=== PATIENT | male | born 1980 | race Caucasian/White ===

== ENCOUNTER 2017-04-21 08:06 | Emergency (ER) | payer MEDICAID, OTHER ==
[2017-04-21] VITALS (7 sets, daily range): BP systolic 94–141; BP diastolic 53–80
[~2017-04-21] VITALS: Ht 160 cm; Wt 73.0 kg
[~2017-04-21 08:06] MED LIST: AMLO10TA80 PO; COR6 PO; LEVVL SQ; LISI40TA4 PO; NEPVIT PO; SEVE800T8 PO
[2017-04-21 09:44] LABS: BASOPHILS % 0.7 % (0.0-2.0); EOSINOPHILS % 4.6 % (0.0-5.0); HEMOGLOBIN. 8.8 g/dL (14.0-18.0); LYMPHOCYTES % 21.1 % (20.0-50.0); MEAN CORPUSCULAR HEMOGLOBIN 26.6 pg (28.0-32.0); MEAN CORPUSCULAR VOLUME 81.3 fL (80.0-94.0); MEAN PLATELET VOLUME 10.2 fl (7.4-10.4); MONOCYTES % 10.6 % (2.0-8.0); PLATELET 284 x1000/uL (130-400); RED BLOOD CELL COUNT 3.32 mill/uL (4.7-6.1); RED CELL DISTRIBUTION WIDTH 15.3 % (11.6-14.6)
[2017-04-21 09:50] LABS: PARTIAL THROMBOPLASTIN TIME 25.6 sec (23.4-31.0); PROTHROMBIN TIME 10.7 sec (9.4-11.6)
[2017-04-21] MEDS ORDERED: HEPARIN 1000 UNITS/ML 10ML ONE (11:23)
[2017-04-21] MEDS ORDERED: FENTANYL CITRATE/PF 50MCG/ML 2ML VIAL IV ONE (11:30)
[2017-04-21] MEDS ORDERED: CEFAZOLIN 1000MG PREMIX 50 ML IV ONE ×2 (11:30→11:54)
[2017-04-21] MEDS ORDERED: FENTANYL CITRATE/PF 50MCG/ML 2ML VIAL ONE (11:54)
[2017-04-21 16:06] LABS: T4 FREE 2.45 ng/dL (0.76-1.46)
== END 2017-04-21 13:58 | disposition home or self-care (01) ==
LOC: ER 08:16
DX: T82.898A Other specified complication of vascular prosthetic devices, implants and grafts, initial encounter (principal); E11.22 Type 2 diabetes mellitus with diabetic chronic kidney disease; I12.0 Hypertensive chronic kidney disease with stage 5 chronic kidney disease or end stage renal disease; N18.6 End stage renal disease; F12.10 Cannabis abuse, uncomplicated; Z79.4 Long term (current) use of insulin; Z99.2 Dependence on renal dialysis
CPT/HCPCS: 36415; 36581; 77001; 80048; 84439; 84481; 85025; 85610; 85730; 96374; 99285; C1750; C1769; J0690; J1644; J3010; Z7610

== ENCOUNTER 2018-08-30 23:50 | Emergency (ER) | payer OTHER ==
[~2018-08-30] VITALS: Ht 175.3 cm; Wt 75.0 kg
[~2018-08-30 23:50] MED LIST changes: -AMLO10TA80 PO; -COR6 PO; -LISI40TA4 PO; +PROP50TA3 PO
[2018-08-31] MEDS ORDERED: MORPHINE SULFATE 4 MG/ML CPJ (NOT FOR IM USE) IV STA (00:40)
[2018-08-31] MEDS ORDERED: ONDANSETRON HCL 4MG/2ML INJ IV STA (00:40)
[2018-08-31 01:42] LABS: CHLORIDE 96 mEq/L (98-107)
[2018-08-31 01:48] LABS: BASOPHILS % 0.3 % (0.0-2.0); EOSINOPHILS % 0.2 % (0.0-5.0); HEMATOCRIT. 36.5 % (42.0-52.0); HEMOGLOBIN. 12.1 g/dL (14.0-18.0); LYMPHOCYTES % 12.1 % (20.0-50.0); MEAN CORPUSCULAR HEMOGLOBIN 30.6 pg (28.0-32.0); MEAN PLATELET VOLUME 9.4 fl (7.4-10.4); MONOCYTES % 10.1 % (2.0-8.0); NEUTROPHILS % 77.3 % (40.0-76.0); PLATELET 251 x1000/uL (130-400); RED BLOOD CELL COUNT 3.97 mill/uL (4.7-6.1); RED CELL DISTRIBUTION WIDTH 15.6 % (11.6-14.6)
[2018-08-31] MEDS ORDERED: MORPHINE SULFATE 4 MG/ML CPJ (NOT FOR IM USE) IV ONE (02:15)
[2018-08-31] MEDS ORDERED: ONDANSETRON HCL 4MG/2ML INJ IV ONE (02:15)
[2018-08-31 02:48] LABS: CLARITY URINE CLOUDY (CLEAR); COLOR URINE YELLOW (YELLOW); KETONES URINE TRACE (NEGATIVE); LEUKOCYTE ESTERASE URINE NEGATIVE (NEGATIVE); NITRITE URINE NEGATIVE (NEGATIVE); OCCULT BLOOD URINE 2+ (NEGATIVE); PH URINE 5.5 (4.5-8.0); PROTEIN URINE 4+ (NEGATIVE); SPECIFIC GRAVITY URINE 1.018 (1.005-1.030); UROBILINOGEN URINE 0.2 E.U./dL (0.2-1.0)
[2018-08-31 04:30] VITALS: BP 145/75
== END 2018-08-31 04:30 | disposition home or self-care (01) ==
LOC: ER 23:50
DX: R10.0 Acute abdomen (principal); R19.7 Diarrhea, unspecified; I12.0 Hypertensive chronic kidney disease with stage 5 chronic kidney disease or end stage renal disease; E11.22 Type 2 diabetes mellitus with diabetic chronic kidney disease; N18.6 End stage renal disease; I25.10 Atherosclerotic heart disease of native coronary artery without angina pectoris; Z99.2 Dependence on renal dialysis; Z79.899 Other long term (current) drug therapy; Z95.5 Presence of coronary angioplasty implant and graft; Z95.1 Presence of aortocoronary bypass graft
CPT/HCPCS: 36415; 71045; 74176; 80053; 81003; 83690; 85025; 96374; 96375; 96376; 99284; J2270; J2405; Z7610

== ENCOUNTER 2018-09-04 07:43 | Inpatient (IN) | payer OTHER ==
[~2018-09-04] VITALS: Ht 175.3 cm; Wt 75.0 kg
[2018-09-04] MEDS ORDERED: DIPHENHYDRAMINE 50MG/ML VIAL IV ONE (08:30)
[2018-09-04 08:57] LABS: HEMATOCRIT. 39.6 % (42.0-52.0); HEMOGLOBIN. 12.7 g/dL (14.0-18.0); MEAN CORPUSCULAR HEMOGLOBIN 29.8 pg (28.0-32.0); MEAN CORPUSCULAR VOLUME 92.6 fL (80.0-94.0); MEAN PLATELET VOLUME 9.2 fl (7.4-10.4); PLATELET 191 x1000/uL (130-400); RED BLOOD CELL COUNT 4.27 mill/uL (4.7-6.1); RED CELL DISTRIBUTION WIDTH 16.5 % (11.6-14.6)
[2018-09-04 09:01] LABS: CHLORIDE 86 mEq/L (98-107)
[2018-09-04 09:03] LABS: INR 1.2; PARTIAL THROMBOPLASTIN TIME 32.2 sec (23.4-31.0); PROTHROMBIN TIME 12.3 sec (9.6-11.0)
[2018-09-04 09:09] LABS: BG BASE EXCESS -13.8 mmol/L (-2.0-2.0); BG CARBOXYHEMOGLOBIN 1.3 % (0.5-1.5); BG DEOXYHEMOGLOBIN 8.8 % (0.0-5.0); BG FRACTION INSPIRED OXYGEN 21; BG HCO3 ACT 11.5 mmol/L (22.0-26.0); BG METHEMOGLOBIN 0.2 % (0.0-1.5); BG OXYGEN SATURATION 91.1 % (92.0-98.5); BG OXYHEMOGLOBIN 89.7 % (94.0-97.0); BG PCO2 26.2 mmHg (35.0-45.0); BG PH 7.261 (7.350-7.450); BG PO2 79.2 mmHg (75.0-100.0); BG SAMPLE SITE RIGHT BRACHIAL; BG TOTAL HEMOGLOBIN 13.1 g/dL (12.0-18.0); BG VENT MODE ROOM AIR
[2018-09-04 09:17] LABS: PHOSPHORUS 10.2 mg/dL (2.5-4.9)
[2018-09-04] MEDS ORDERED: SODIUM BICARBONATE 8.4% 1 MEQ/ML 50ML SYR IV ONE (09:30)
[2018-09-04] MEDS ORDERED: CALCIUM CHLORIDE 1GM/10ML SYR IV ONE (09:30)
[2018-09-04] MEDS ORDERED: DEXTROSE 50% WATER 50ML SYRINGE IV ONE (09:30)
[2018-09-04] MEDS ORDERED: INSULIN REGULAR (HUMULIN R) 300UNITS/3ML IV ONE (09:30)
[2018-09-04 09:44] LABS: PLATELET ESTIMATE NORMAL
[2018-09-04] MEDS ORDERED: MORPHINE SULFATE 2 MG/ML CPJ (NOT FOR IM USE) IV PRN (13:30)
[2018-09-04] MEDS ORDERED: ONDANSETRON HCL 4MG/2ML INJ IV PRN (13:30)
[2018-09-04] MEDS ORDERED: NA PHOS,M-B/NA PHOS,DI-BA ENEMA 118ML PR PRN (13:30)
[2018-09-04] MEDS ORDERED: DOCUSATE SODIUM 100MG CAPSULE PO PRN (13:30)
[2018-09-04] MEDS ORDERED: HYDROCODONE/ACETAMINOPHEN 5/325MG TABLET PO PRN (13:30)
[2018-09-04] MEDS ORDERED: DIPHENHYDRAMINE 50MG/ML VIAL IV PRN (13:30)
[2018-09-04] MEDS ORDERED: CLONIDINE 0.1MG TABLET PO PRN (13:30)
[2018-09-04] MEDS ORDERED: GUAIFENESIN 200MG/10ML SUGAR FREE UDC PO PRN (13:30)
[2018-09-04] MEDS ORDERED: ACETAMINOPHEN 325MG TABLET PO PRN (13:30)
[2018-09-04] MEDS ORDERED: LORAZEPAM 2MG/ML CPJ IV PRN (13:30)
[2018-09-04] MEDS ORDERED: IPRATROPIUM/ALBUTEROL 0.5-3(2.5)MG/3ML NEB INH PRN (13:30)
[2018-09-04] MEDS ORDERED: MAGNESIUM/ALUMINUM HYDROXIDE/SIMETHICONE 30ML UDC PO PRN (13:30)
[2018-09-04 13:52] VITALS: BP 193/92
[2018-09-04 15:56] VITALS: BP 193/92
[2018-09-04 16:00] VITALS: BP_SYST 122; BP_SYST 193; BP_DIAS 63; BP_DIAS 92
[2018-09-04] MEDS: ENOXAPARIN 30MG/0.3ML SYR SUBCUT SCH (18:10)
[2018-09-04 20:00] VITALS: BP 194/97
[2018-09-04] MEDS ORDERED: HEPARIN SODIUM 1,000 UNIT/1ML VIAL IV NR ×2 (20:00→21:45)
[2018-09-04] MEDS: PROPYLTHIOURACIL 50MG TABLET PO SCH (22:00)
[2018-09-05] VITALS (8 sets, daily range): BP systolic 143–177; BP diastolic 68–93
[2018-09-05] MEDS: PROPYLTHIOURACIL 50MG TABLET PO SCH (05:34)
[2018-09-05 07:32] LABS: BASOPHILS % 0.4 % (0.0-2.0); EOSINOPHILS % 1.2 % (0.0-5.0); HEMATOCRIT. 34.3 % (42.0-52.0); HEMOGLOBIN. 11.4 g/dL (14.0-18.0); LYMPHOCYTES % 15.3 % (20.0-50.0); MEAN CORPUSCULAR HEMOGLOBIN 30.3 pg (28.0-32.0); MEAN CORPUSCULAR VOLUME 91.1 fL (80.0-94.0); MEAN PLATELET VOLUME 9.6 fl (7.4-10.4); MONOCYTES % 14.1 % (2.0-8.0); PLATELET 132 x1000/uL (130-400); RED BLOOD CELL COUNT 3.77 mill/uL (4.7-6.1); RED CELL DISTRIBUTION WIDTH 16.1 % (11.6-14.6)
[2018-09-05 08:33] LABS: CHLORIDE 95 mEq/L (98-107)
[2018-09-05 08:42] LABS: LDL CHOLESTEROL 76 mg/dL (5-100); T4 FREE 2.27 ng/dL (0.76-1.46)
[2018-09-05 08:43] LABS: CREATINE KINASE 150 IU/L (39-308); CREATINE KINASE MB FRACTION 6.5 ng/mL (0.5-3.6); HDL CHOLESTEROL 21 mg/dL (40-59)
[2018-09-05] MEDS: ASPIRIN 81MG EC TABLET PO SCH (09:17)
[2018-09-05] MEDS: SEVELAMER CARBONATE 800 MG TABLET PO SCH ×3 (09:17→17:17)
[2018-09-05] MEDS: FOLIC ACID/VITAMIN B COMP W-C TABLET PO SCH (09:18)
[2018-09-05] MEDS: LOSARTAN POTASSIUM 25 MG TABLET PO SCH (14:00)
[2018-09-05] MEDS ORDERED: CLONIDINE 0.2MG TABLET PO PRN (14:00)
[2018-09-05] MEDS: METHIMAZOLE 10MG TABLET PO SCH (17:00)
[2018-09-05] MEDS: ENOXAPARIN 30MG/0.3ML SYR SUBCUT SCH (17:00)
[2018-09-05] MEDS: NITROGLYCERIN OINT 1GM/INCH UDPKT TD SCH (17:30)
[2018-09-05] MEDS: CARVEDILOL 6.25 MG TABLET PO SCH (20:42)
[2018-09-06] VITALS: BP 141/88
[2018-09-06] MEDS: NITROGLYCERIN OINT 1GM/INCH UDPKT TD SCH ×4 (00:45→17:14)
[2018-09-06] MEDS ORDERED: DEXTROSE 50% WATER 50ML SYRINGE IV PRN (01:15)
[2018-09-06 04:00] VITALS: BP 133/71
[2018-09-06 06:03] LABS: BASOPHILS % 0.7 % (0.0-2.0); EOSINOPHILS % 3.9 % (0.0-5.0); HEMATOCRIT. 34.6 % (42.0-52.0); HEMOGLOBIN. 11.5 g/dL (14.0-18.0); LYMPHOCYTES % 15.2 % (20.0-50.0); MEAN CORPUSCULAR HEMOGLOBIN 30.5 pg (28.0-32.0); MEAN CORPUSCULAR VOLUME 92.1 fL (80.0-94.0); MEAN PLATELET VOLUME 10.4 fl (7.4-10.4); MONOCYTES % 14.5 % (2.0-8.0); NEUTROPHILS % 65.7 % (40.0-76.0); PLATELET 117 x1000/uL (130-400); RED BLOOD CELL COUNT 3.76 mill/uL (4.7-6.1); RED CELL DISTRIBUTION WIDTH 16.4 % (11.6-14.6)
[2018-09-06 06:34] LABS: CHLORIDE 92 mEq/L (98-107)
[2018-09-06 06:46] LABS: CREATINE KINASE 144 IU/L (39-308)
[2018-09-06 06:49] LABS: CREATINE KINASE MB FRACTION 6.8 ng/mL (0.5-3.6)
[2018-09-06] MEDS: INSULIN LISPRO 100 UNITS/ML SUBCUT SCH ×4 (06:55→20:47)
[2018-09-06] MEDS: BLOOD SUGAR DIAGNOSTIC STRIP TEST SCH ×4 (06:55→20:48)
[2018-09-06] MEDS: CARVEDILOL 6.25 MG TABLET PO SCH ×2 (08:06→20:47)
[2018-09-06] MEDS: LOSARTAN POTASSIUM 25 MG TABLET PO SCH (08:06)
[2018-09-06 08:46] VITALS: BP 129/75
[2018-09-06] MEDS: METHIMAZOLE 10MG TABLET PO SCH ×2 (09:10→18:05)
[2018-09-06] MEDS: ASPIRIN 81MG EC TABLET PO SCH (09:11)
[2018-09-06] MEDS: FOLIC ACID/VITAMIN B COMP W-C TABLET PO SCH (09:11)
[2018-09-06] MEDS: SEVELAMER CARBONATE 800 MG TABLET PO SCH ×3 (09:11→18:05)
[2018-09-06 12:00] VITALS: BP 126/77
[2018-09-06 12:37] LABS: HEPATITIS B SURFACE ANTIGEN NEGATIVE
[2018-09-06 13:05] LABS: HEPATITIS A AB IGM NEGATIVE (NEGATIVE)
[2018-09-06 16:04] VITALS: BP 141/83
[2018-09-06 20:17] VITALS: BP 150/75
[2018-09-07] VITALS (7 sets, daily range): BP systolic 116–149; BP diastolic 60–84
[2018-09-07] MEDS: NITROGLYCERIN OINT 1GM/INCH UDPKT TD SCH ×3 (00:56→18:00)
[2018-09-07 06:05] LABS: BASOPHILS % 1.1 % (0.0-2.0); EOSINOPHILS % 7.7 % (0.0-5.0); HEMOGLOBIN. 11.9 g/dL (14.0-18.0); LYMPHOCYTES % 10.6 % (20.0-50.0); MEAN CORPUSCULAR HEMOGLOBIN 30.5 pg (28.0-32.0); MEAN PLATELET VOLUME 10.5 fl (7.4-10.4); MONOCYTES % 13.7 % (2.0-8.0); NEUTROPHILS % 66.9 % (40.0-76.0); PLATELET 109 x1000/uL (130-400); RED BLOOD CELL COUNT 3.91 mill/uL (4.7-6.1); RED CELL DISTRIBUTION WIDTH 16.5 % (11.6-14.6)
[2018-09-07] MEDS: INSULIN LISPRO 100 UNITS/ML SUBCUT SCH ×4 (06:21→20:46)
[2018-09-07] MEDS: BLOOD SUGAR DIAGNOSTIC STRIP TEST SCH ×4 (06:22→20:30)
[2018-09-07 06:24] LABS: CHLORIDE 98 mEq/L (98-107)
[2018-09-07] MEDS: ASPIRIN 81MG EC TABLET PO SCH (08:31)
[2018-09-07] MEDS: CARVEDILOL 6.25 MG TABLET PO SCH ×2 (08:37→20:40)
[2018-09-07] MEDS: LOSARTAN POTASSIUM 25 MG TABLET PO SCH (08:37)
[2018-09-07] MEDS: METHIMAZOLE 10MG TABLET PO SCH ×2 (08:37→17:00)
[2018-09-07] MEDS: SEVELAMER CARBONATE 800 MG TABLET PO SCH ×3 (08:37→17:20)
[2018-09-07] MEDS: FOLIC ACID/VITAMIN B COMP W-C TABLET PO SCH (08:37)
[2018-09-07] MEDS ORDERED: HEPARIN SODIUM 1,000 UNIT/1ML VIAL IV ONE (09:31)
[2018-09-07] MEDS ORDERED: MIDAZOLAM HCL 2 MG/2 ML VIAL ONE (11:59)
[2018-09-07] MEDS ORDERED: LIDOCAINE HCL 1% 20ML VIAL (Pyxis) INJ ONE (12:00)
[2018-09-07] MEDS ORDERED: ASPIRIN/SOD BICARB/CITRIC ACID 324MG TAB EFF ONE (12:00)
[2018-09-07] MEDS ORDERED: FENTANYL CITRATE/PF 50MCG/ML 2ML VIAL ONE (12:00)
[2018-09-07] MEDS ORDERED: IODIXANOL 320MG/ML 100 ML BOTTLE IV ONE (12:00)
[2018-09-07] MEDS ORDERED: ATROPINE SULFATE 1MG/10ML SYR IV PRN (13:15)
[2018-09-07] MEDS ORDERED: MORPHINE SULFATE 2 MG/ML CPJ (NOT FOR IM USE) IV PRN (13:15)
[2018-09-07] MEDS ORDERED: ACETAMINOPHEN 325MG TABLET PO PRN (13:15)
[2018-09-07] MEDS ORDERED: ONDANSETRON HCL 4MG/2ML INJ IV PRN (13:15)
[2018-09-08] VITALS (7 sets, daily range): BP systolic 142–157; BP diastolic 78–91
[2018-09-08] MEDS: NITROGLYCERIN OINT 1GM/INCH UDPKT TD SCH ×3 (01:01→11:50)
[2018-09-08] MEDS: BLOOD SUGAR DIAGNOSTIC STRIP TEST SCH ×2 (06:26→11:50)
[2018-09-08 07:04] LABS: EOSINOPHILS % 11.9 % (0.0-5.0); HEMATOCRIT. 36.3 % (42.0-52.0); HEMOGLOBIN. 11.8 g/dL (14.0-18.0); LYMPHOCYTES % 10.3 % (20.0-50.0); MEAN CORPUSCULAR VOLUME 92.2 fL (80.0-94.0); MEAN PLATELET VOLUME 10.2 fl (7.4-10.4); MONOCYTES % 10.6 % (2.0-8.0); NEUTROPHILS % 66.2 % (40.0-76.0); PLATELET 111 x1000/uL (130-400); RED BLOOD CELL COUNT 3.94 mill/uL (4.7-6.1); RED CELL DISTRIBUTION WIDTH 16.5 % (11.6-14.6)
[2018-09-08] MEDS: SEVELAMER CARBONATE 800 MG TABLET PO SCH (08:03)
[2018-09-08] MEDS: METHIMAZOLE 10MG TABLET PO SCH (08:04)
[2018-09-08] MEDS: ASPIRIN 81MG EC TABLET PO SCH (08:04)
[2018-09-08] MEDS: LOSARTAN POTASSIUM 25 MG TABLET PO SCH (08:04)
[2018-09-08] MEDS: FOLIC ACID/VITAMIN B COMP W-C TABLET PO SCH (08:04)
[2018-09-08] MEDS: CARVEDILOL 6.25 MG TABLET PO SCH (08:05)
[2018-09-08] MEDS: INSULIN LISPRO 100 UNITS/ML SUBCUT SCH (08:06)
== END 2018-09-08 11:46 | disposition home or self-care (01) | DRG 190 ==
LOC: ER 07:43 → 8WST 10:24 → EDBEDREQ 10:26 → EDBEDREQTM 10:26 → ENRESERV 14:45 → 3WST 09-07 13:29
PROVIDERS: ADMIT Internal Medicine; ATTEND Internal Medicine
PROC: 5A1D70Z Performance of Urinary Filtration, Intermittent, Less than 6 Hours Per Day (ICD-10-PCS; 2018-09-04)
PROC: 5A1D70Z Performance of Urinary Filtration, Intermittent, Less than 6 Hours Per Day (ICD-10-PCS; 2018-09-06)
PROC: 4A023N7 Measurement of Cardiac Sampling and Pressure, Left Heart, Percutaneous Approach (ICD-10-PCS; principal; 2018-09-07)
PROC: B2111ZZ Fluoroscopy of Multiple Coronary Arteries using Low Osmolar Contrast (ICD-10-PCS; 2018-09-07)
PROC: B2131ZZ Fluoroscopy of Multiple Coronary Artery Bypass Grafts using Low Osmolar Contrast (ICD-10-PCS; 2018-09-07)
PROC: B2181ZZ Fluoroscopy of Left Internal Mammary Bypass Graft using Low Osmolar Contrast (ICD-10-PCS; 2018-09-07)
PROC: 4A033BC Measurement of Arterial Pressure, Coronary, Percutaneous Approach (ICD-10-PCS; 2018-09-07)
PROC: 5A1D70Z Performance of Urinary Filtration, Intermittent, Less than 6 Hours Per Day (ICD-10-PCS; 2018-09-07)
DX: I21.4 Non-ST elevation (NSTEMI) myocardial infarction (principal); I13.2 Hypertensive heart and chronic kidney disease with heart failure and with stage 5 chronic kidney disease, or end stage renal disease; N17.9 Acute kidney failure, unspecified; E11.21 Type 2 diabetes mellitus with diabetic nephropathy; D69.6 Thrombocytopenia, unspecified; E46 Unspecified protein-calorie malnutrition; N18.6 End stage renal disease; E11.22 Type 2 diabetes mellitus with diabetic chronic kidney disease; E87.70 Fluid overload, unspecified; E11.51 Type 2 diabetes mellitus with diabetic peripheral angiopathy without gangrene; E87.5 Hyperkalemia; E83.39 Other disorders of phosphorus metabolism; I42.0 Dilated cardiomyopathy; I25.10 Atherosclerotic heart disease of native coronary artery without angina pectoris; I25.5 Ischemic cardiomyopathy; J98.11 Atelectasis; N25.81 Secondary hyperparathyroidism of renal origin; D63.8 Anemia in other chronic diseases classified elsewhere; E87.1 Hypo-osmolality and hyponatremia; E05.00 Thyrotoxicosis with diffuse goiter without thyrotoxic crisis or storm; E03.9 Hypothyroidism, unspecified; E78.00 Pure hypercholesterolemia, unspecified; L29.9 Pruritus, unspecified; E78.5 Hyperlipidemia, unspecified; R74.0 Nonspecific elevation of levels of transaminase and lactic acid dehydrogenase [LDH]; I50.20 Unspecified systolic (congestive) heart failure; Z79.4 Long term (current) use of insulin; Z99.2 Dependence on renal dialysis; Z91.15 Patient's noncompliance with renal dialysis; I25.2 Old myocardial infarction; Z91.19 Patient's noncompliance with other medical treatment and regimen; Z95.1 Presence of aortocoronary bypass graft; Z83.3 Family history of diabetes mellitus; Z79.84 Long term (current) use of oral hypoglycemic drugs; Z68.24 Body mass index [BMI] 24.0-24.9, adult
CPT/HCPCS: 36415; 36600; 71045; 80048; 80061; 82375; 82550; 82553; 82805; 82962; 83520; 83735; 83970; 84100; 84439; 84443; 84481; 84484; 86376; 86705; 86709; 86803; 87340; 93005; 93306; 93459; 96374; 96375; 99291; C1760; C1769; C1893; J1200; J1644; J1650; J1815; J2060; J2250; J3010; J3490; Q9967

== ENCOUNTER 2019-03-05 19:11 | Emergency (ER) | payer MEDICAID, OTHER ==
[~2019-03-05] VITALS: Ht 175.3 cm; Wt 76.0 kg
[2019-03-05 20:23] VITALS: BP 164/88
== END 2019-03-05 21:27 | disposition left against medical advice (07) ==
LOC: ER 19:11
DX: Z53.21 Procedure and treatment not carried out due to patient leaving prior to being seen by health care provider (principal); R05 Cough; R50.9 Fever, unspecified; J02.9 Acute pharyngitis, unspecified

== ENCOUNTER 2019-08-14 22:04 | Inpatient (IN) | payer MEDICAID ==
[~2019-08-14] VITALS: Ht 177.8 cm; Wt 92.2 kg
[2019-08-14] MEDS ORDERED: SODIUM CHLORIDE 0.9% 1,000 ML IV ONE (22:47)
[2019-08-14] MEDS ORDERED: MORPHINE SULFATE 4 MG/ML CPJ (NOT FOR IM USE) IV STA (22:47)
[2019-08-14] MEDS ORDERED: ONDANSETRON HCL 4MG/2ML INJ IV STA (22:47)
[2019-08-14] MEDS ORDERED: VANCOMYCIN 1 G PREMIX 200 ML IV ONE (23:00)
[2019-08-14] MEDS ORDERED: PIPERACILLIN/TAZ 3.375G PREMIX 50 ML IV ONE (23:00)
[2019-08-14 23:08] LABS: BASOPHILS % 0.7 % (0.0-2.0); EOSINOPHILS % 0.6 % (0.0-5.0); HEMOGLOBIN. 12.5 g/dL (14.0-18.0); LYMPHOCYTES % 7.6 % (20.0-50.0); MEAN CORPUSCULAR HEMOGLOBIN 30.8 pg (28.0-32.0); MEAN CORPUSCULAR VOLUME 91.4 fL (80.0-94.0); MEAN PLATELET VOLUME 9.2 fl (7.4-10.4); MONOCYTES % 6.1 % (2.0-8.0); PLATELET 224 x1000/uL (130-400); RED BLOOD CELL COUNT 4.05 mill/uL (4.7-6.1); RED CELL DISTRIBUTION WIDTH 17.8 % (11.6-14.6)
[2019-08-14 23:16] LABS: CHLORIDE 96 mEq/L (98-107)
[2019-08-14 23:24] LABS: BETA HYDROXYBUTYRATE 1.2 mMol/L (0.0-0.3)
[2019-08-15 03:00] VITALS: BP 155/77
[2019-08-15 04:00] VITALS: BP 155/77
[2019-08-15] MEDS ORDERED: DEXTROSE 50% WATER 50ML SYRINGE IV PRN (06:00)
[2019-08-15] MEDS: BLOOD SUGAR DIAGNOSTIC STRIP TEST SCH ×4 (06:47→21:51)
[2019-08-15 08:00] VITALS: BP 159/86
[2019-08-15] MEDS: INSULIN LISPRO 100 UNITS/ML SUBCUT SCH ×4 (08:10→21:00)
[2019-08-15] MEDS: ENOXAPARIN 30MG/0.3ML SYR SUBCUT SCH (08:31)
[2019-08-15] MEDS ORDERED: ENOXAPARIN 40MG/0.4ML SYR SUBCUT SCH (09:00)
[2019-08-15] MEDS: PROPYLTHIOURACIL 50MG TABLET PO SCH ×4 (10:00→21:51)
[2019-08-15] MEDS: FOLIC ACID/VITAMIN B COMP W-C TABLET PO SCH (10:23)
[2019-08-15] MEDS: PIPERACILLIN/TAZOBACTAM 2.25 G in DEXTROSE 5% WATER 50 ML IV SCH ×2 (10:23→17:22)
[2019-08-15 10:30] LABS: HEMATOCRIT. 34.7 % (42.0-52.0); HEMOGLOBIN. 11.6 g/dL (14.0-18.0); MEAN CORPUSCULAR HEMOGLOBIN 30.6 pg (28.0-32.0); MEAN CORPUSCULAR VOLUME 91.9 fL (80.0-94.0); MEAN PLATELET VOLUME 9.2 fl (7.4-10.4); PLATELET 226 x1000/uL (130-400); RED BLOOD CELL COUNT 3.78 mill/uL (4.7-6.1); RED CELL DISTRIBUTION WIDTH 17.9 % (11.6-14.6)
[2019-08-15] MEDS ORDERED: AMLO10TA4 MT (10:37)
[2019-08-15] MEDS ORDERED: CARV12.545 MT (10:37)
[2019-08-15] MEDS ORDERED: VANCOMYCIN 750 MG PREMIX 150 ML IV SCH (11:00)
[2019-08-15] MEDS: AMLODIPINE 10MG TABLET PO SCH (11:05)
[2019-08-15] MEDS: HYDROCODONE/ACETAMINOPHEN 5/325MG TABLET PO PRN ×3 (11:06→22:07)
[2019-08-15 12:00] VITALS: BP 148/79
[2019-08-15] MEDS ORDERED: SODIUM BICARBONATE 8.4% 1 MEQ/ML 50ML SYR IV SCH (12:00)
[2019-08-15] MEDS: SEVELAMER CARBONATE 800 MG TABLET PO SCH ×2 (12:29→17:22)
[2019-08-15] MEDS ORDERED: INSULIN REGULAR (HUMULIN R) UD 100 UNITS/ML SYR IV SCH (13:00)
[2019-08-15] MEDS ORDERED: DEXTROSE 50% WATER 50ML SYRINGE IV SCH (13:00)
[2019-08-15] MEDS ORDERED: PIPERACILLIN/TAZ 3.375G PREMIX 50 ML IV SCH (14:00)
[2019-08-15 16:00] VITALS: BP 138/77
[2019-08-15 20:00] VITALS: BP 122/73
[2019-08-15] MEDS: CARVEDILOL 12.5MG TABLET PO SCH (21:50)
[2019-08-15] MEDS: INSULIN GLARGINE UD 100 UNITS/ML SYR SUBCUT SCH (21:59)
[2019-08-16] VITALS: BP 118/73
[2019-08-16] MEDS: PIPERACILLIN/TAZOBACTAM 2.25 G in DEXTROSE 5% WATER 50 ML IV SCH ×3 (02:41→18:28)
[2019-08-16] MEDS: HYDROCODONE/ACETAMINOPHEN 5/325MG TABLET PO PRN ×4 (02:49→18:28)
[2019-08-16 04:00] VITALS: BP 122/75
[2019-08-16] MEDS: PROPYLTHIOURACIL 50MG TABLET PO SCH ×4 (06:00→20:18)
[2019-08-16 06:35] LABS: PHOSPHORUS 8.5 mg/dL (2.5-4.9)
[2019-08-16 06:40] LABS: HEMOGLOBIN. 10.8 g/dL (14.0-18.0); MEAN CORPUSCULAR HEMOGLOBIN 30.6 pg (28.0-32.0); MEAN PLATELET VOLUME 9.4 fl (7.4-10.4); PLATELET 217 x1000/uL (130-400); RED BLOOD CELL COUNT 3.51 mill/uL (4.7-6.1); RED CELL DISTRIBUTION WIDTH 17.2 % (11.6-14.6)
[2019-08-16] MEDS: BLOOD SUGAR DIAGNOSTIC STRIP TEST SCH ×4 (07:20→20:18)
[2019-08-16] MEDS: INSULIN LISPRO 100 UNITS/ML SUBCUT SCH ×4 (07:50→20:55)
[2019-08-16 08:00] VITALS: BP 125/65
[2019-08-16] MEDS: SEVELAMER CARBONATE 800 MG TABLET PO SCH ×3 (08:43→17:50)
[2019-08-16] MEDS: AMLODIPINE 10MG TABLET PO SCH (08:44)
[2019-08-16] MEDS: FOLIC ACID/VITAMIN B COMP W-C TABLET PO SCH (08:44)
[2019-08-16] MEDS: CARVEDILOL 12.5MG TABLET PO SCH ×2 (08:44→20:18)
[2019-08-16] MEDS: ENOXAPARIN 30MG/0.3ML SYR SUBCUT SCH (08:45)
[2019-08-16 09:55] LABS: PLATELET ESTIMATE NORMAL
[2019-08-16 12:00] VITALS: BP 158/74
[2019-08-16 12:44] LABS: PLATELET ESTIMATE NORMAL
[2019-08-16] MEDS ORDERED: DIPHENHYDRAMINE 50MG/ML VIAL IM PRN (14:15)
[2019-08-16] MEDS: MORPHINE SULFATE 2 MG/ML CPJ (NOT FOR IM USE) IV PRN ×2 (15:46→20:11)
[2019-08-16] MEDS ORDERED: VANCOMYCIN 500 MG PREMIX 100 ML IV SCH (18:00)
[2019-08-16 20:00] VITALS: BP 128/59
[2019-08-16] MEDS: INSULIN GLARGINE UD 100 UNITS/ML SYR SUBCUT SCH (20:55)
[2019-08-16] MEDS ORDERED: IOHEXOL-350 100 ML BOTTLE ONE (23:09)
[2019-08-17] VITALS: BP 110/62
[2019-08-17] MEDS: HYDROCODONE/ACETAMINOPHEN 5/325MG TABLET PO PRN ×4 (00:09→13:18)
[2019-08-17] MEDS: PIPERACILLIN/TAZOBACTAM 2.25 G in DEXTROSE 5% WATER 50 ML IV SCH ×3 (01:27→17:21)
[2019-08-17] MEDS: MORPHINE SULFATE 2 MG/ML CPJ (NOT FOR IM USE) IV PRN ×3 (01:55→11:17)
[2019-08-17 04:00] VITALS: BP 139/66
[2019-08-17] MEDS: PROPYLTHIOURACIL 50MG TABLET PO SCH ×2 (04:45→13:07)
[2019-08-17] MEDS: BLOOD SUGAR DIAGNOSTIC STRIP TEST SCH ×4 (04:46→21:00)
[2019-08-17] MEDS: INSULIN LISPRO 100 UNITS/ML SUBCUT SCH ×4 (05:15→21:00)
[2019-08-17 06:41] LABS: HEMATOCRIT. 33.6 % (42.0-52.0); HEMOGLOBIN. 11.1 g/dL (14.0-18.0); MEAN CORPUSCULAR HEMOGLOBIN 30.6 pg (28.0-32.0); MEAN CORPUSCULAR VOLUME 92.2 fL (80.0-94.0); MEAN PLATELET VOLUME 9.5 fl (7.4-10.4); PLATELET 224 x1000/uL (130-400); RED BLOOD CELL COUNT 3.64 mill/uL (4.7-6.1); RED CELL DISTRIBUTION WIDTH 17.6 % (11.6-14.6)
[2019-08-17 07:16] LABS: PHOSPHORUS 6.2 mg/dL (2.5-4.9)
[2019-08-17 08:00] VITALS: BP 117/61
[2019-08-17] MEDS: SEVELAMER CARBONATE 800 MG TABLET PO SCH ×3 (08:46→17:20)
[2019-08-17] MEDS: FOLIC ACID/VITAMIN B COMP W-C TABLET PO SCH (08:48)
[2019-08-17] MEDS: AMLODIPINE 10MG TABLET PO SCH (08:48)
[2019-08-17] MEDS: ENOXAPARIN 30MG/0.3ML SYR SUBCUT SCH (08:48)
[2019-08-17] MEDS: CARVEDILOL 12.5MG TABLET PO SCH ×2 (08:49→21:00)
[2019-08-17 13:12] LABS: PLATELET ESTIMATE NORMAL
[2019-08-17] MEDS ORDERED: LACTULOSE 20G/30ML UDC PO PRN (14:00)
[2019-08-17] MEDS: GABAPENTIN 100MG CAPSULE PO SCH ×2 (15:33→21:56)
[2019-08-17 16:00] VITALS: BP 109/46
[2019-08-17 20:00] VITALS: BP 96/53
[2019-08-17] MEDS: INSULIN GLARGINE UD 100 UNITS/ML SYR SUBCUT SCH (22:00)
[2019-08-18] VITALS: BP 113/66
[2019-08-18 04:00] VITALS: BP 92/44
[2019-08-18] MEDS: PIPERACILLIN/TAZOBACTAM 2.25 G in DEXTROSE 5% WATER 50 ML IV SCH ×3 (05:00→17:07)
[2019-08-18] MEDS: GABAPENTIN 100MG CAPSULE PO SCH ×3 (06:26→22:35)
[2019-08-18] MEDS: BLOOD SUGAR DIAGNOSTIC STRIP TEST SCH ×4 (07:47→21:50)
[2019-08-18] MEDS: INSULIN LISPRO 100 UNITS/ML SUBCUT SCH ×4 (07:47→22:33)
[2019-08-18] MEDS: SEVELAMER CARBONATE 800 MG TABLET PO SCH ×3 (07:56→17:07)
[2019-08-18] MEDS: FOLIC ACID/VITAMIN B COMP W-C TABLET PO SCH (07:56)
[2019-08-18] MEDS: AMLODIPINE 10MG TABLET PO SCH (07:57)
[2019-08-18] MEDS: CARVEDILOL 12.5MG TABLET PO SCH ×2 (07:57→21:00)
[2019-08-18 08:30] VITALS: BP 126/66
[2019-08-18] MEDS: MORPHINE SULFATE 2 MG/ML CPJ (NOT FOR IM USE) IV PRN ×2 (08:49→22:36)
[2019-08-18] MEDS: ENOXAPARIN 30MG/0.3ML SYR SUBCUT SCH (10:29)
[2019-08-18 12:00] VITALS: BP 122/67
[2019-08-18 12:11] LABS: BG BASE EXCESS 3.2 mmol/L (-2.0-2.0); BG CARBOXYHEMOGLOBIN 0.5 % (0.5-1.5); BG DEOXYHEMOGLOBIN 56.9 % (0.0-5.0); BG FRACTION INSPIRED OXYGEN 21; BG HCO3 ACT 28.9 mmol/L (22.0-26.0); BG OXYGEN SATURATION 42.8 % (92.0-98.5); BG OXYHEMOGLOBIN 42.6 % (94.0-97.0); BG PCO2 49.4 mmHg (35.0-45.0); BG PH 7.385 (7.350-7.450); BG PO2 < 30.3 mmHg (75.0-100.0); BG SAMPLE SITE RIGHT RADIAL; BG TOTAL HEMOGLOBIN 10.4 g/dL (12.0-18.0); BG VENT MODE ROOM AIR
[2019-08-18 16:30] VITALS: BP 105/61
[2019-08-18 20:00] VITALS: BP 107/42
[2019-08-18] MEDS: INSULIN GLARGINE UD 100 UNITS/ML SYR SUBCUT SCH (22:34)
[2019-08-19] MEDS: PIPERACILLIN/TAZOBACTAM 2.25 G in DEXTROSE 5% WATER 50 ML IV SCH ×3 (02:27→17:00)
[2019-08-19 04:00] VITALS: BP 90/55
[2019-08-19] MEDS: HYDROCODONE/ACETAMINOPHEN 5/325MG TABLET PO PRN (05:19)
[2019-08-19] MEDS: GABAPENTIN 100MG CAPSULE PO SCH ×3 (05:33→21:17)
[2019-08-19 06:29] LABS: HEMATOCRIT. 28.2 % (42.0-52.0); HEMOGLOBIN. 9.4 g/dL (14.0-18.0); MEAN CORPUSCULAR HEMOGLOBIN 30.3 pg (28.0-32.0); MEAN CORPUSCULAR VOLUME 91.3 fL (80.0-94.0); MEAN PLATELET VOLUME 9.6 fl (7.4-10.4); PLATELET 178 x1000/uL (130-400); RED BLOOD CELL COUNT 3.08 mill/uL (4.7-6.1); RED CELL DISTRIBUTION WIDTH 17.5 % (11.6-14.6)
[2019-08-19] MEDS: BLOOD SUGAR DIAGNOSTIC STRIP TEST SCH ×4 (07:29→20:55)
[2019-08-19] MEDS: INSULIN LISPRO 100 UNITS/ML SUBCUT SCH ×4 (07:30→21:19)
[2019-08-19] MEDS: LOSARTAN POTASSIUM 25 MG TABLET PO SCH (08:00)
[2019-08-19] MEDS: CARVEDILOL 12.5MG TABLET PO SCH ×2 (08:00→21:17)
[2019-08-19] MEDS: AMLODIPINE 10MG TABLET PO SCH (08:00)
[2019-08-19] MEDS: ENOXAPARIN 30MG/0.3ML SYR SUBCUT SCH (08:01)
[2019-08-19] MEDS: FOLIC ACID/VITAMIN B COMP W-C TABLET PO SCH (08:01)
[2019-08-19] MEDS: SEVELAMER CARBONATE 800 MG TABLET PO SCH ×3 (08:01→17:00)
[2019-08-19 08:38] VITALS: BP 105/48
[2019-08-19 12:16] VITALS: BP 106/50
[2019-08-19] MEDS ORDERED: VANCOMYCIN 750 MG PREMIX 150 ML IV SCH (13:00)
[2019-08-19 16:16] LABS: PLATELET ESTIMATE NORMAL
[2019-08-19 16:23] VITALS: BP 119/62
[2019-08-19] MEDS: MORPHINE SULFATE 2 MG/ML CPJ (NOT FOR IM USE) IV PRN ×2 (17:17→21:18)
[2019-08-19 20:00] VITALS: BP 117/43
[2019-08-19] MEDS: INSULIN GLARGINE UD 100 UNITS/ML SYR SUBCUT SCH (21:19)
[2019-08-20] VITALS: BP 114/66
[2019-08-20] MEDS: PIPERACILLIN/TAZOBACTAM 2.25 G in DEXTROSE 5% WATER 50 ML IV SCH ×3 (01:59→22:28)
[2019-08-20 04:00] VITALS: BP 109/60
[2019-08-20] MEDS: GABAPENTIN 100MG CAPSULE PO SCH ×3 (05:54→22:10)
[2019-08-20 06:41] LABS: HEMOGLOBIN. 10.1 g/dL (14.0-18.0); MEAN CORPUSCULAR HEMOGLOBIN 30.6 pg (28.0-32.0); MEAN CORPUSCULAR VOLUME 91.1 fL (80.0-94.0); MEAN PLATELET VOLUME 9.6 fl (7.4-10.4); PLATELET 179 x1000/uL (130-400); RED CELL DISTRIBUTION WIDTH 17.4 % (11.6-14.6)
[2019-08-20] MEDS: BLOOD SUGAR DIAGNOSTIC STRIP TEST SCH ×4 (07:20→21:00)
[2019-08-20] MEDS: INSULIN LISPRO 100 UNITS/ML SUBCUT SCH ×4 (07:50→21:00)
[2019-08-20 08:00] VITALS: BP 113/65
[2019-08-20] MEDS: CARVEDILOL 12.5MG TABLET PO SCH ×2 (09:00→22:11)
[2019-08-20] MEDS: LOSARTAN POTASSIUM 25 MG TABLET PO SCH (09:00)
[2019-08-20] MEDS: FOLIC ACID/VITAMIN B COMP W-C TABLET PO SCH (09:50)
[2019-08-20] MEDS: ENOXAPARIN 30MG/0.3ML SYR SUBCUT SCH (09:51)
[2019-08-20] MEDS: SEVELAMER CARBONATE 800 MG TABLET PO SCH ×4 (09:52→17:53)
[2019-08-20] MEDS: AMLODIPINE 10MG TABLET PO SCH (11:30)
[2019-08-20 12:00] VITALS: BP 132/68
[2019-08-20] MEDS: ACETAMINOPHEN 325MG TABLET PO PRN ×2 (16:05→22:10)
[2019-08-20 20:00] VITALS: BP 153/51
[2019-08-20] MEDS ORDERED: VANCOMYCIN 500 MG PREMIX 100 ML IV SCH (21:00)
[2019-08-20] MEDS: MORPHINE SULFATE 2 MG/ML CPJ (NOT FOR IM USE) IV PRN (22:09)
[2019-08-20] MEDS: ATORVASTATIN CALCIUM 20MG TABLET PO SCH (22:10)
[2019-08-20] MEDS: INSULIN GLARGINE UD 100 UNITS/ML SYR SUBCUT SCH (22:10)
[2019-08-20 22:14] LABS: PLATELET ESTIMATE NORMAL
[2019-08-21] VITALS: BP 116/47
[2019-08-21] MEDS: PIPERACILLIN/TAZOBACTAM 2.25 G in DEXTROSE 5% WATER 50 ML IV SCH ×3 (02:08→22:07)
[2019-08-21 04:00] VITALS: BP 107/65
[2019-08-21] MEDS: GABAPENTIN 100MG CAPSULE PO SCH ×3 (06:00→22:05)
[2019-08-21 06:13] LABS: MEAN CORPUSCULAR HEMOGLOBIN 30.5 pg (28.0-32.0); MEAN CORPUSCULAR VOLUME 91.1 fL (80.0-94.0); MEAN PLATELET VOLUME 9.4 fl (7.4-10.4); PLATELET 152 x1000/uL (130-400); RED BLOOD CELL COUNT 2.96 mill/uL (4.7-6.1); RED CELL DISTRIBUTION WIDTH 17.3 % (11.6-14.6)
[2019-08-21 06:25] LABS: T4 FREE 0.83 ng/dL (0.76-1.46)
[2019-08-21] MEDS: SEVELAMER CARBONATE 800 MG TABLET PO SCH ×3 (07:50→17:47)
[2019-08-21] MEDS: INSULIN LISPRO 100 UNITS/ML SUBCUT SCH ×3 (07:50→21:00)
[2019-08-21 08:00] VITALS: BP 109/52
[2019-08-21] MEDS: BLOOD SUGAR DIAGNOSTIC STRIP TEST SCH ×3 (08:17→21:00)
[2019-08-21] MEDS: ENOXAPARIN 30MG/0.3ML SYR SUBCUT SCH (09:00)
[2019-08-21] MEDS ORDERED: HEPARIN SODIUM 1,000 UNIT/1ML VIAL IV ONE (11:13)
[2019-08-21] MEDS ORDERED: FENTANYL CITRATE/PF 50MCG/ML 2ML VIAL ONE (11:43)
[2019-08-21] MEDS ORDERED: MIDAZOLAM HCL 2 MG/2 ML VIAL ONE (11:43)
[2019-08-21] MEDS ORDERED: LIDOCAINE HCL 1% 20ML VIAL (Pyxis) INJ ONE (11:43)
[2019-08-21] MEDS ORDERED: IODIXANOL 320MG/ML 100 ML BOTTLE IV ONE (11:44)
[2019-08-21] MEDS ORDERED: IOHEXOL-300 100 ML BOTTLE ONE (12:33)
[2019-08-21] MEDS: FOLIC ACID/VITAMIN B COMP W-C TABLET PO SCH (14:31)
[2019-08-21] MEDS: CARVEDILOL 12.5MG TABLET PO SCH ×2 (14:32→21:00)
[2019-08-21] MEDS: AMLODIPINE 10MG TABLET PO SCH (14:33)
[2019-08-21] MEDS: LOSARTAN POTASSIUM 25 MG TABLET PO SCH (14:33)
[2019-08-21 16:06] VITALS: BP 105/48
[2019-08-21 19:52] LABS: PLATELET ESTIMATE NORMAL
[2019-08-21 20:00] VITALS: BP 105/50
[2019-08-21] MEDS: ATORVASTATIN CALCIUM 20MG TABLET PO SCH (22:06)
[2019-08-21] MEDS: ACETAMINOPHEN 325MG TABLET PO PRN (22:07)
[2019-08-21] MEDS: INSULIN GLARGINE UD 100 UNITS/ML SYR SUBCUT SCH (22:08)
[2019-08-21] MEDS: MORPHINE SULFATE 2 MG/ML CPJ (NOT FOR IM USE) IV PRN (22:33)
[2019-08-22] VITALS: BP 102/50
[2019-08-22 04:00] VITALS: BP 99/49
[2019-08-22] MEDS: ACETAMINOPHEN 325MG TABLET PO PRN (04:21)
[2019-08-22] MEDS: GABAPENTIN 100MG CAPSULE PO SCH ×3 (06:17→21:35)
[2019-08-22] MEDS: PIPERACILLIN/TAZOBACTAM 2.25 G in DEXTROSE 5% WATER 50 ML IV SCH ×3 (06:17→18:09)
[2019-08-22] MEDS: BLOOD SUGAR DIAGNOSTIC STRIP TEST SCH ×4 (06:56→21:32)
[2019-08-22] MEDS ORDERED: DEXAMETHASONE 4MG/ML 1ML VIAL ONE (07:00)
[2019-08-22] MEDS ORDERED: LIDOCAINE HCL 1% 20ML VIAL (Pyxis) INJ ONE (07:00)
[2019-08-22] MEDS ORDERED: GENTAMICIN SULF 40MG/ML 2ML VIAL ONE (07:00)
[2019-08-22] MEDS ORDERED: BACITRACIN 15GM TUBE TOP ONE (07:00)
[2019-08-22] MEDS ORDERED: BACITRACIN 50,000 UNITS/VIAL ONE ×2 (07:01→07:15)
[2019-08-22] MEDS ORDERED: BUPIVACAINE HCL/PF 0.5% (5MG/ML) 10ML ONE (07:01)
[2019-08-22 07:36] LABS: HEMATOCRIT. 29.7 % (42.0-52.0); HEMOGLOBIN. 9.9 g/dL (14.0-18.0); MEAN CORPUSCULAR HEMOGLOBIN 30.3 pg (28.0-32.0); MEAN PLATELET VOLUME 10.1 fl (7.4-10.4); PLATELET 157 x1000/uL (130-400); RED BLOOD CELL COUNT 3.27 mill/uL (4.7-6.1); RED CELL DISTRIBUTION WIDTH 17.4 % (11.6-14.6)
[2019-08-22] MEDS: SEVELAMER CARBONATE 800 MG TABLET PO SCH ×3 (07:50→17:50)
[2019-08-22] MEDS: INSULIN LISPRO 100 UNITS/ML SUBCUT SCH ×4 (07:50→21:00)
[2019-08-22] MEDS ORDERED: PROPOFOL 200MG/20ML VIAL IV ONE (07:53)
[2019-08-22] MEDS ORDERED: LIDOCAINE HCL/PF 1% 10 MG/ML 5ML VIAL ONE (07:53)
[2019-08-22] MEDS ORDERED: DIPHENHYDRAMINE 50MG/ML VIAL ONE (07:57)
[2019-08-22] MEDS ORDERED: MIDAZOLAM HCL 2 MG/2 ML VIAL ONE (07:57)
[2019-08-22] MEDS ORDERED: FENTANYL CITRATE/PF 50MCG/ML 2ML VIAL ONE (07:57)
[2019-08-22] MEDS ORDERED: SODIUM CHLORIDE 0.9% 10ML VIAL ONE (08:03)
[2019-08-22] MEDS: LOSARTAN POTASSIUM 25 MG TABLET PO SCH (09:00)
[2019-08-22] MEDS: AMLODIPINE 10MG TABLET PO SCH (09:00)
[2019-08-22] MEDS: FOLIC ACID/VITAMIN B COMP W-C TABLET PO SCH (09:00)
[2019-08-22] MEDS: CARVEDILOL 12.5MG TABLET PO SCH ×2 (09:00→21:35)
[2019-08-22] MEDS: ENOXAPARIN 30MG/0.3ML SYR SUBCUT SCH (09:00)
[2019-08-22 11:34] VITALS: BP 103/38
[2019-08-22] MEDS: MORPHINE SULFATE 2 MG/ML CPJ (NOT FOR IM USE) IV PRN (15:54)
[2019-08-22 16:00] VITALS: BP 92/41
[2019-08-22 16:38] LABS: PLATELET ESTIMATE NORMAL
[2019-08-22 20:00] VITALS: BP 124/84
[2019-08-22] MEDS ORDERED: VANCOMYCIN 500 MG PREMIX 100 ML IV SCH (21:00)
[2019-08-22] MEDS: ATORVASTATIN CALCIUM 20MG TABLET PO SCH (21:35)
[2019-08-22] MEDS: INSULIN GLARGINE UD 100 UNITS/ML SYR SUBCUT SCH (21:38)
[2019-08-23 00:30] VITALS: BP 113/52
[2019-08-23] MEDS: PIPERACILLIN/TAZOBACTAM 2.25 G in DEXTROSE 5% WATER 50 ML IV SCH ×2 (01:26→09:18)
[2019-08-23] MEDS: ACETAMINOPHEN 325MG TABLET PO PRN (01:29)
[2019-08-23 04:00] VITALS: BP 109/52
[2019-08-23] MEDS: BLOOD SUGAR DIAGNOSTIC STRIP TEST SCH ×4 (07:15→21:26)
[2019-08-23] MEDS: INSULIN LISPRO 100 UNITS/ML SUBCUT SCH ×4 (07:16→21:33)
[2019-08-23 07:57] VITALS: BP 107/54
[2019-08-23] MEDS: CARVEDILOL 12.5MG TABLET PO SCH ×2 (08:00→21:25)
[2019-08-23] MEDS: AMLODIPINE 10MG TABLET PO SCH (08:01)
[2019-08-23] MEDS: LOSARTAN POTASSIUM 25 MG TABLET PO SCH (08:01)
[2019-08-23] MEDS: SEVELAMER CARBONATE 800 MG TABLET PO SCH ×3 (08:06→17:02)
[2019-08-23] MEDS: FOLIC ACID/VITAMIN B COMP W-C TABLET PO SCH (08:06)
[2019-08-23] MEDS: ENOXAPARIN 30MG/0.3ML SYR SUBCUT SCH (08:07)
[2019-08-23 12:15] VITALS: BP 95/43
[2019-08-23] MEDS: MEROPENEM 1,000 MG in SODIUM CHLORIDE 0.9% 100 ML IV SCH (13:40)
[2019-08-23] MEDS: GABAPENTIN 100MG CAPSULE PO SCH ×2 (13:40→21:25)
[2019-08-23 15:59] VITALS: BP 111/55
[2019-08-23 20:00] VITALS: BP 111/50
[2019-08-23] MEDS: ATORVASTATIN CALCIUM 20MG TABLET PO SCH (21:00)
[2019-08-23] MEDS: INSULIN GLARGINE UD 100 UNITS/ML SYR SUBCUT SCH (21:33)
[2019-08-24] VITALS: BP 111/52
[2019-08-24 04:00] VITALS: BP 118/53
[2019-08-24] MEDS: ACETAMINOPHEN 325MG TABLET PO PRN (04:27)
[2019-08-24] MEDS: GABAPENTIN 100MG CAPSULE PO SCH ×3 (05:37→21:01)
[2019-08-24 06:02] LABS: BASOPHILS % 0.9 % (0.0-2.0); EOSINOPHILS % 7.7 % (0.0-5.0); HEMOGLOBIN. 9.4 g/dL (14.0-18.0); LYMPHOCYTES % 7.8 % (20.0-50.0); MEAN CORPUSCULAR HEMOGLOBIN 30.2 pg (28.0-32.0); MEAN CORPUSCULAR VOLUME 90.3 fL (80.0-94.0); MEAN PLATELET VOLUME 10.2 fl (7.4-10.4); MONOCYTES % 10.6 % (2.0-8.0); PLATELET 150 x1000/uL (130-400); RED CELL DISTRIBUTION WIDTH 17.1 % (11.6-14.6)
[2019-08-24 06:15] LABS: PHOSPHORUS 2.5 mg/dL (2.5-4.9)
[2019-08-24] MEDS: BLOOD SUGAR DIAGNOSTIC STRIP TEST SCH ×4 (06:57→21:05)
[2019-08-24 08:00] VITALS: BP 114/58
[2019-08-24] MEDS: LOSARTAN POTASSIUM 25 MG TABLET PO SCH (09:47)
[2019-08-24] MEDS: CARVEDILOL 12.5MG TABLET PO SCH ×2 (09:47→21:01)
[2019-08-24] MEDS: SEVELAMER CARBONATE 800 MG TABLET PO SCH ×3 (09:47→17:50)
[2019-08-24] MEDS: AMLODIPINE 10MG TABLET PO SCH (09:48)
[2019-08-24] MEDS: FOLIC ACID/VITAMIN B COMP W-C TABLET PO SCH (09:48)
[2019-08-24] MEDS: ENOXAPARIN 30MG/0.3ML SYR SUBCUT SCH (09:49)
[2019-08-24] MEDS: INSULIN LISPRO 100 UNITS/ML SUBCUT SCH ×4 (09:50→22:00)
[2019-08-24 12:22] VITALS: BP 104/51
[2019-08-24] MEDS: MEROPENEM 1,000 MG in SODIUM CHLORIDE 0.9% 100 ML IV SCH (14:52)
[2019-08-24 16:00] VITALS: BP 118/57
[2019-08-24] MEDS ORDERED: VANCOMYCIN 1 G PREMIX 200 ML IV NR (17:00)
[2019-08-24 20:00] VITALS: BP 114/57
[2019-08-24] MEDS: ATORVASTATIN CALCIUM 20MG TABLET PO SCH (21:00)
[2019-08-24] MEDS: INSULIN GLARGINE UD 100 UNITS/ML SYR SUBCUT SCH (22:00)
[2019-08-25] VITALS: BP 116/54
[2019-08-25 04:00] VITALS: BP 120/65
[2019-08-25] MEDS: GABAPENTIN 100MG CAPSULE PO SCH ×3 (06:18→22:10)
[2019-08-25 07:18] LABS: BASOPHILS % 0.9 % (0.0-2.0); EOSINOPHILS % 7.5 % (0.0-5.0); HEMATOCRIT. 25.9 % (42.0-52.0); HEMOGLOBIN. 8.8 g/dL (14.0-18.0); LYMPHOCYTES % 8.9 % (20.0-50.0); MEAN CORPUSCULAR HEMOGLOBIN 30.4 pg (28.0-32.0); MEAN CORPUSCULAR VOLUME 89.2 fL (80.0-94.0); MONOCYTES % 9.4 % (2.0-8.0); NEUTROPHILS % 73.3 % (40.0-76.0); PLATELET 167 x1000/uL (130-400); RED BLOOD CELL COUNT 2.91 mill/uL (4.7-6.1)
[2019-08-25] MEDS: BLOOD SUGAR DIAGNOSTIC STRIP TEST SCH ×4 (07:20→21:00)
[2019-08-25 07:22] LABS: CHLORIDE 99 mEq/L (98-107)
[2019-08-25] MEDS: SEVELAMER CARBONATE 800 MG TABLET PO SCH ×2 (07:50→09:16)
[2019-08-25] MEDS: INSULIN LISPRO 100 UNITS/ML SUBCUT SCH ×4 (07:50→21:00)
[2019-08-25 08:00] VITALS: BP 108/54
[2019-08-25] MEDS: LOSARTAN POTASSIUM 25 MG TABLET PO SCH (09:00)
[2019-08-25] MEDS: FOLIC ACID/VITAMIN B COMP W-C TABLET PO SCH (09:15)
[2019-08-25] MEDS: AMLODIPINE 5MG TABLET PO SCH (09:15)
[2019-08-25] MEDS: CARVEDILOL 12.5MG TABLET PO SCH ×2 (09:15→21:00)
[2019-08-25] MEDS: ENOXAPARIN 30MG/0.3ML SYR SUBCUT SCH (09:21)
[2019-08-25] MEDS: MORPHINE SULFATE 2 MG/ML CPJ (NOT FOR IM USE) IV PRN ×2 (10:16→18:46)
[2019-08-25 12:03] VITALS: BP 105/45
[2019-08-25] MEDS: CALCIUM ACETATE 667MG CAPSULE PO SCH ×2 (13:00→18:40)
[2019-08-25] MEDS: MEROPENEM 1,000 MG in SODIUM CHLORIDE 0.9% 100 ML IV SCH (15:52)
[2019-08-25 16:00] VITALS: BP 110/56
[2019-08-25 20:00] VITALS: BP 100/60
[2019-08-25] MEDS: ATORVASTATIN CALCIUM 20MG TABLET PO SCH (21:00)
[2019-08-25] MEDS: INSULIN GLARGINE UD 100 UNITS/ML SYR SUBCUT SCH (22:07)
[2019-08-26] VITALS: BP 108/56
[2019-08-26 04:00] VITALS: BP 106/59
[2019-08-26] MEDS: GABAPENTIN 100MG CAPSULE PO SCH ×3 (05:33→20:38)
[2019-08-26 07:05] LABS: BASOPHILS % 0.7 % (0.0-2.0); EOSINOPHILS % 9.5 % (0.0-5.0); HEMATOCRIT. 26.8 % (42.0-52.0); HEMOGLOBIN. 9.1 g/dL (14.0-18.0); MEAN CORPUSCULAR HEMOGLOBIN 30.8 pg (28.0-32.0); MEAN CORPUSCULAR VOLUME 90.6 fL (80.0-94.0); MEAN PLATELET VOLUME 10.1 fl (7.4-10.4); MONOCYTES % 10.9 % (2.0-8.0); NEUTROPHILS % 66.9 % (40.0-76.0); PLATELET 196 x1000/uL (130-400); RED BLOOD CELL COUNT 2.96 mill/uL (4.7-6.1); RED CELL DISTRIBUTION WIDTH 17.2 % (11.6-14.6)
[2019-08-26] MEDS: BLOOD SUGAR DIAGNOSTIC STRIP TEST SCH ×4 (07:20→21:43)
[2019-08-26] MEDS: INSULIN LISPRO 100 UNITS/ML SUBCUT SCH ×4 (07:50→21:00)
[2019-08-26 07:58] LABS: CHLORIDE 99 mEq/L (98-107)
[2019-08-26 08:00] VITALS: BP 106/47
[2019-08-26 08:06] LABS: CREATINE KINASE 17 IU/L (39-308)
[2019-08-26 08:09] LABS: CREATINE KINASE MB FRACTION 1.4 ng/mL (0.5-3.6)
[2019-08-26] MEDS: CARVEDILOL 12.5MG TABLET PO SCH ×2 (08:37→21:43)
[2019-08-26] MEDS: AMLODIPINE 5MG TABLET PO SCH (08:38)
[2019-08-26] MEDS: LOSARTAN POTASSIUM 25 MG TABLET PO SCH (08:38)
[2019-08-26] MEDS: CALCIUM ACETATE 667MG CAPSULE PO SCH ×3 (09:56→18:00)
[2019-08-26] MEDS: FOLIC ACID/VITAMIN B COMP W-C TABLET PO SCH (09:56)
[2019-08-26] MEDS: ENOXAPARIN 30MG/0.3ML SYR SUBCUT SCH (09:57)
[2019-08-26] MEDS: MORPHINE SULFATE 2 MG/ML CPJ (NOT FOR IM USE) IV PRN ×2 (10:12→22:14)
[2019-08-26 12:00] VITALS: BP 113/58
[2019-08-26] MEDS ORDERED: CEFTRIAXONE 2 G PREMIX 50 ML IV SCH (15:30)
[2019-08-26 16:00] VITALS: BP 110/57
[2019-08-26] MEDS: CEFTRIAXONE 2 G in DEXTROSE 5% WATER 50 ML IV SCH (18:00)
[2019-08-26 20:00] VITALS: BP 116/61
[2019-08-26] MEDS ORDERED: CALCIUM CARBONATE 500MG TABLET CHEW PO PRN (20:00)
[2019-08-26] MEDS: ATORVASTATIN CALCIUM 20MG TABLET PO SCH (20:38)
[2019-08-26] MEDS ORDERED: CALCIUM CARBONATE 500MG TABLET CHEW PO NR (21:23)
[2019-08-26] MEDS: INSULIN GLARGINE UD 100 UNITS/ML SYR SUBCUT SCH (21:43)
[2019-08-27] VITALS: BP 104/66
[2019-08-27 04:00] VITALS: BP 119/60
[2019-08-27 06:44] LABS: BASOPHILS % 1.1 % (0.0-2.0); EOSINOPHILS % 8.5 % (0.0-5.0); HEMATOCRIT. 27.4 % (42.0-52.0); HEMOGLOBIN. 9.4 g/dL (14.0-18.0); LYMPHOCYTES % 10.3 % (20.0-50.0); MEAN CORPUSCULAR VOLUME 90.7 fL (80.0-94.0); MEAN PLATELET VOLUME 10.1 fl (7.4-10.4); MONOCYTES % 11.1 % (2.0-8.0); PLATELET 255 x1000/uL (130-400); RED BLOOD CELL COUNT 3.02 mill/uL (4.7-6.1); RED CELL DISTRIBUTION WIDTH 17.2 % (11.6-14.6)
[2019-08-27] MEDS: GABAPENTIN 100MG CAPSULE PO SCH ×3 (06:45→21:17)
[2019-08-27] MEDS: BLOOD SUGAR DIAGNOSTIC STRIP TEST SCH ×4 (06:45→21:18)
[2019-08-27] MEDS: INSULIN LISPRO 100 UNITS/ML SUBCUT SCH ×4 (06:45→21:18)
[2019-08-27 08:00] VITALS: BP 127/66
[2019-08-27] MEDS: ENOXAPARIN 30MG/0.3ML SYR SUBCUT SCH (08:29)
[2019-08-27] MEDS: CALCIUM ACETATE 667MG CAPSULE PO SCH ×3 (08:29→17:59)
[2019-08-27] MEDS: AMLODIPINE 5MG TABLET PO SCH (08:29)
[2019-08-27] MEDS: FOLIC ACID/VITAMIN B COMP W-C TABLET PO SCH (08:29)
[2019-08-27] MEDS: LOSARTAN POTASSIUM 25 MG TABLET PO SCH (08:29)
[2019-08-27] MEDS: CARVEDILOL 12.5MG TABLET PO SCH ×2 (08:29→21:17)
[2019-08-27] MEDS: CALCIUM CARBONATE 500MG TABLET CHEW PO PRN ×2 (09:15→20:28)
[2019-08-27] MEDS: ACETAMINOPHEN 325MG TABLET PO PRN (11:59)
[2019-08-27 12:00] VITALS: BP 122/61
[2019-08-27] MEDS: CEFTRIAXONE 2 G in DEXTROSE 5% WATER 50 ML IV SCH (19:29)
[2019-08-27 20:31] VITALS: BP 131/61
[2019-08-27] MEDS: ATORVASTATIN CALCIUM 20MG TABLET PO SCH (21:17)
[2019-08-27] MEDS: EPOETIN ALFA 4000UNITS/ML VIAL SUBCUT SCH (21:17)
[2019-08-27] MEDS: INSULIN GLARGINE UD 100 UNITS/ML SYR SUBCUT SCH (21:19)
[2019-08-28] VITALS (7 sets, daily range): BP systolic 103–123; BP diastolic 50–60
[2019-08-28] MEDS: MORPHINE SULFATE 2 MG/ML CPJ (NOT FOR IM USE) IV PRN (01:33)
[2019-08-28] MEDS: GABAPENTIN 100MG CAPSULE PO SCH ×3 (05:52→21:55)
[2019-08-28] MEDS: BLOOD SUGAR DIAGNOSTIC STRIP TEST SCH ×4 (07:35→20:57)
[2019-08-28] MEDS: INSULIN LISPRO 100 UNITS/ML SUBCUT SCH ×4 (07:36→20:57)
[2019-08-28] MEDS: FOLIC ACID/VITAMIN B COMP W-C TABLET PO SCH (08:34)
[2019-08-28] MEDS: ENOXAPARIN 30MG/0.3ML SYR SUBCUT SCH (08:34)
[2019-08-28] MEDS: CALCIUM ACETATE 667MG CAPSULE PO SCH ×4 (08:34→17:45)
[2019-08-28] MEDS: CARVEDILOL 12.5MG TABLET PO SCH ×2 (08:34→20:56)
[2019-08-28] MEDS: AMLODIPINE 5MG TABLET PO SCH (08:35)
[2019-08-28] MEDS: LOSARTAN POTASSIUM 25 MG TABLET PO SCH (08:35)
[2019-08-28] MEDS: CEFTRIAXONE 2 G in DEXTROSE 5% WATER 50 ML IV SCH (17:39)
[2019-08-28] MEDS: ACETAMINOPHEN 325MG TABLET PO PRN (17:45)
[2019-08-28] MEDS: ATORVASTATIN CALCIUM 20MG TABLET PO SCH (20:57)
[2019-08-28] MEDS: INSULIN GLARGINE UD 100 UNITS/ML SYR SUBCUT SCH (21:57)
[2019-08-29 00:38] VITALS: BP 116/53
[2019-08-29] MEDS: GABAPENTIN 100MG CAPSULE PO SCH ×3 (06:13→21:06)
[2019-08-29 06:18] LABS: BASOPHILS % 1.1 % (0.0-2.0); EOSINOPHILS % 10.7 % (0.0-5.0); HEMATOCRIT. 26.2 % (42.0-52.0); HEMOGLOBIN. 8.9 g/dL (14.0-18.0); MEAN CORPUSCULAR HEMOGLOBIN 30.8 pg (28.0-32.0); MEAN CORPUSCULAR VOLUME 90.4 fL (80.0-94.0); MEAN PLATELET VOLUME 9.3 fl (7.4-10.4); MONOCYTES % 13.8 % (2.0-8.0); NEUTROPHILS % 60.4 % (40.0-76.0); PLATELET 277 x1000/uL (130-400); RED CELL DISTRIBUTION WIDTH 17.1 % (11.6-14.6)
[2019-08-29] MEDS: BLOOD SUGAR DIAGNOSTIC STRIP TEST SCH ×4 (06:18→21:06)
[2019-08-29 07:11] LABS: PHOSPHORUS 5.4 mg/dL (2.5-4.9)
[2019-08-29] MEDS: INSULIN LISPRO 100 UNITS/ML SUBCUT SCH ×4 (07:50→21:02)
[2019-08-29 08:00] VITALS: BP 130/58
[2019-08-29] MEDS: CARVEDILOL 12.5MG TABLET PO SCH ×2 (09:00→20:43)
[2019-08-29] MEDS: AMLODIPINE 5MG TABLET PO SCH (09:00)
[2019-08-29] MEDS: LOSARTAN POTASSIUM 25 MG TABLET PO SCH (09:00)
[2019-08-29] MEDS: ENOXAPARIN 30MG/0.3ML SYR SUBCUT SCH (09:00)
[2019-08-29] MEDS: CALCIUM ACETATE 667MG CAPSULE PO SCH ×3 (09:24→17:50)
[2019-08-29] MEDS: FOLIC ACID/VITAMIN B COMP W-C TABLET PO SCH (09:24)
[2019-08-29] MEDS: MORPHINE SULFATE 2 MG/ML CPJ (NOT FOR IM USE) IV PRN ×2 (09:26→18:42)
[2019-08-29 12:00] VITALS: BP 135/72
[2019-08-29] MEDS: CEFTRIAXONE 2 G in DEXTROSE 5% WATER 50 ML IV SCH (18:43)
[2019-08-29] MEDS: ATORVASTATIN CALCIUM 20MG TABLET PO SCH (20:43)
[2019-08-29 20:52] VITALS: BP 133/67
[2019-08-29] MEDS: INSULIN GLARGINE UD 100 UNITS/ML SYR SUBCUT SCH (21:03)
[2019-08-29] MEDS: EPOETIN ALFA 4000UNITS/ML VIAL SUBCUT SCH (21:06)
[2019-08-30 00:16] VITALS: BP 130/62
[2019-08-30 04:41] VITALS: BP 125/54
[2019-08-30] MEDS: GABAPENTIN 100MG CAPSULE PO SCH ×2 (05:59→13:41)
[2019-08-30] MEDS: BLOOD SUGAR DIAGNOSTIC STRIP TEST SCH ×3 (06:25→17:55)
[2019-08-30] MEDS: INSULIN LISPRO 100 UNITS/ML SUBCUT SCH ×3 (07:50→17:50)
[2019-08-30] MEDS: CALCIUM ACETATE 667MG CAPSULE PO SCH ×3 (08:40→17:50)
[2019-08-30] MEDS: CARVEDILOL 12.5MG TABLET PO SCH (08:41)
[2019-08-30] MEDS: LOSARTAN POTASSIUM 25 MG TABLET PO SCH ×2 (08:41→08:59)
[2019-08-30] MEDS: FOLIC ACID/VITAMIN B COMP W-C TABLET PO SCH (08:41)
[2019-08-30] MEDS: AMLODIPINE 5MG TABLET PO SCH (08:42)
[2019-08-30] MEDS: ENOXAPARIN 30MG/0.3ML SYR SUBCUT SCH (08:43)
[2019-08-30] MEDS: MORPHINE SULFATE 2 MG/ML CPJ (NOT FOR IM USE) IV PRN (08:45)
[2019-08-30 12:33] VITALS: BP 123/60
[2019-08-30 16:00] VITALS: BP 110/57
[2019-08-30] MEDS ORDERED: HYDROCODONE/ACETAMINOPHEN 5/325MG TABLET PO PRN (17:00)
[2019-08-30] MEDS: CEFTRIAXONE 2 G in DEXTROSE 5% WATER 50 ML IV SCH (17:36)
[2019-08-30 18:32] VITALS: BP 110/57
[2019-08-30 20:14] VITALS: BP 120/54
== END 2019-08-30 20:45 | DRG 710 ==
LOC: ER 22:04 → 7WST 08-15 01:00 → ENRESERV 08-15 01:59 → CANRESERV 08-15 01:59 → ENRESERV 08-15 02:41 → 7WST 08-15 04:18 → 6WST 08-15 23:08
PROVIDERS: ADMIT Internal Medicine; ATTEND Internal Medicine
PROC: B41G1ZZ Fluoroscopy of Left Lower Extremity Arteries using Low Osmolar Contrast (ICD-10-PCS; 2019-08-21)
PROC: 047N3ZZ Dilation of Left Popliteal Artery, Percutaneous Approach (ICD-10-PCS; 2019-08-21)
PROC: 047U3ZZ Dilation of Left Peroneal Artery, Percutaneous Approach (ICD-10-PCS; 2019-08-21)
PROC: 047Q3ZZ Dilation of Left Anterior Tibial Artery, Percutaneous Approach (ICD-10-PCS; 2019-08-21)
PROC: 047W3ZZ Dilation of Left Foot Artery, Percutaneous Approach (ICD-10-PCS; 2019-08-21)
PROC: 0Y6N0ZF Detachment at Left Foot, Partial 5th Ray, Open Approach (ICD-10-PCS; principal; 2019-08-26)
PROC: 0QBP0ZX Excision of Left Metatarsal, Open Approach, Diagnostic (ICD-10-PCS; 2019-08-26)
DX: A41.9 Sepsis, unspecified organism (principal); E11.69 Type 2 diabetes mellitus with other specified complication; J96.01 Acute respiratory failure with hypoxia; I13.2 Hypertensive heart and chronic kidney disease with heart failure and with stage 5 chronic kidney disease, or end stage renal disease; J18.9 Pneumonia, unspecified organism; E46 Unspecified protein-calorie malnutrition; E11.22 Type 2 diabetes mellitus with diabetic chronic kidney disease; M86.8X7 Other osteomyelitis, ankle and foot; I96 Gangrene, not elsewhere classified; E83.39 Other disorders of phosphorus metabolism; E11.621 Type 2 diabetes mellitus with foot ulcer; E11.52 Type 2 diabetes mellitus with diabetic peripheral angiopathy with gangrene; E11.42 Type 2 diabetes mellitus with diabetic polyneuropathy; I50.23 Acute on chronic systolic (congestive) heart failure; N18.6 End stage renal disease; L97.529 Non-pressure chronic ulcer of other part of left foot with unspecified severity; E87.5 Hyperkalemia; I25.5 Ischemic cardiomyopathy; D63.8 Anemia in other chronic diseases classified elsewhere; E03.9 Hypothyroidism, unspecified; E78.00 Pure hypercholesterolemia, unspecified; Z20.828 Contact with and (suspected) exposure to other viral communicable diseases; E78.5 Hyperlipidemia, unspecified; I25.10 Atherosclerotic heart disease of native coronary artery without angina pectoris; I44.0 Atrioventricular block, first degree; L02.612 Cutaneous abscess of left foot; Z99.2 Dependence on renal dialysis; I25.2 Old myocardial infarction; Z79.4 Long term (current) use of insulin; Z79.899 Other long term (current) drug therapy; Z91.19 Patient's noncompliance with other medical treatment and regimen; Z95.1 Presence of aortocoronary bypass graft; Z68.29 Body mass index [BMI] 29.0-29.9, adult
CPT/HCPCS: 36415; 36600; 37224; 37228; 37232; 71045; 73610; 73620; 75635; 75710; 78582; 80048; 80053; 80061; 80202; 82010; 82375; 82550; 82553; 82805; 82962; 83036; 83605; 83735; 84100; 84132; 84145; 84439; 84443; 84484; 85025; 85347; 85651; 86140; 87070; 87075; 87077; 87186; 88311; 93005; 93306; 93923; 97116; 97162; 97166; 97530; 97535; 99291; A9558; C1725; C1760; C1769; C1887; C1893; C1894; J0696; J0885; J1100; J1200; J1580; J1644; J1650; J1815; J2185; J2250; J2270; J2405; J2543; J2704; J3010; J3370; J3490; J7030; J7050; J7060; Q9967; U0003-CS